=== PATIENT | female | born 1975 | race Caucasian/White ===

== ENCOUNTER → 2016-05-28 | Outpatient (CLI) | payer OTHER ==
[2014-12-27 17:10] VITALS: BP 136/95
--- NOTE | 2016-05-28 17:14 | RAD ---
Pelvic ultrasound, 05/28/2016: History: Pelvic pressure Transabdominal and transvaginal scans were obtained. The uterus measures 11.1 x 5.2 x 8.2 cm. 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 The central uterine echo complex measures approximately 13 mm. This considered to be at the upper limits of normal in the premenopausal state. A small nabothian cyst is present in the cervical region. There is a 1.8 cm slightly hypoechoic myometrial mass in the posterior aspect of the lower uterine segment compatible with a small fibroid. Both ovaries are within normal limits in size. No adnexal mass is seen. No significant free fluid is evident in the pelvis. IMPRESSION: 1. Small uterine fibroid. 2. 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 3. Small nabothian cyst.
== END | disposition home or self-care (01) ==
LOC: US 12:40
PROVIDERS: ATTEND Nurse Practitioner Family
DX: D25.9 Leiomyoma of uterus, unspecified (principal); N88.8 Other specified noninflammatory disorders of cervix uteri
CPT/HCPCS: 76856

== ENCOUNTER → 2016-06-03 | Outpatient (CLI) | payer OTHER ==
[2014-12-27 17:10] VITALS: BP 136/95
--- NOTE | 2016-06-03 12:26 | KCIC ---
PROCEDURE Two views left hip. HISTORY Left hip pain, chronic. Repetitive motion at work. TECHNIQUE Two views of the left hip are submitted for review. COMPARISON None. FINDINGS There is no fracture or dislocation. There is no joint space narrowing. There are calcified phleboliths in the included pelvis. IMPRESSION Normal left hip radiographs. Electronically signed by: Kevan Reid MD (Jun 03, 2016 12:23:48)
--- NOTE | 2016-06-03 12:26 | KCIC ---
PROCEDURE The two views right hip. HISTORY Chronic pain, repetitive bending at work TECHNIQUE Two views of the right hip are submitted for review. COMPARISON None. FINDINGS There is no fracture or dislocation. There is no joint space narrowing. There are calcified phleboliths in the pelvis. There are probably mild degenerative changes at the symphysis pubis. IMPRESSION Normal right hip radiographs. Electronically signed by: Kevan Reid MD (Jun 03, 2016 12:25:06)
--- NOTE | 2016-06-03 12:32 | KCIC ---
PROCEDURE Three-view left knee HISTORY Chronic pain. Repetitive bending and lifting. COMPARISON None FINDINGS No bone lesion. No acute fracture. Joint spaces appear maintained. No significant soft tissue abnormality. IMPRESSION No acute fracture or dislocation. Electronically signed by: Ilia Anderson MD (Jun 03, 2016 12:30:23)
== END | disposition home or self-care (01) ==
LOC: KCIC 11:07
PROVIDERS: ATTEND Family Medicine
DX: M25.532 Pain in left wrist (principal); M25.552 Pain in left hip; M25.551 Pain in right hip; G89.29 Other chronic pain
CPT/HCPCS: 73502; 73562

== ENCOUNTER → 2017-02-18 | Outpatient (CLI) | payer OTHER | END | disposition home or self-care (01) | LOC: KCIC CT 09:29 | DX: N20.0 Calculus of kidney (principal); N29 Other disorders of kidney and ureter in diseases classified elsewhere; R91.8 Other nonspecific abnormal finding of lung field; Z90.49 Acquired absence of other specified parts of digestive tract | CPT/HCPCS: 74176 ==

== ENCOUNTER → 2017-05-31 | Outpatient (CLI) | payer OTHER | END | disposition home or self-care (01) | LOC: RAD 07:43 | DX: K59.00 Constipation, unspecified (principal); Z87.442 Personal history of urinary calculi | CPT/HCPCS: 74018 ==

== ENCOUNTER → 2017-08-04 | Outpatient (CLI) | payer OTHER | END | disposition home or self-care (01) | LOC: KCIC CT 07:59 | DX: R91.8 Other nonspecific abnormal finding of lung field (principal); E83.59 Other disorders of calcium metabolism; N29 Other disorders of kidney and ureter in diseases classified elsewhere | CPT/HCPCS: 71250 ==

== ENCOUNTER → 2017-12-13 | Outpatient (CLI) | payer OTHER ==
[2014-12-27 17:10] VITALS: BP 136/95
--- NOTE | 2017-12-13 16:43 | KCIC ---
Indication:Lateral knee pain couple of weeks. TECHNIQUE: 3 views of the left knee COMPARISON:None FINDINGS/ impression: No acute fracture or dislocation. No arthritis. No suprapatellar effusion. Electronically signed by: Dong Malone DO (12/13/2017 4:40 PM) [facility]
== END | disposition home or self-care (01) ==
LOC: KCIC 11:37
PROVIDERS: ATTEND Family Medicine
DX: M25.562 Pain in left knee (principal)
CPT/HCPCS: 73562

== ENCOUNTER → 2018-09-13 | Outpatient (CLI) | payer OTHER ==
[2014-12-27 17:10] VITALS: BP 136/95
--- NOTE | 2018-09-13 16:12 | KCIC ---
EXAM: Chest CT without intravenous contrast. HISTORY: Pulmonary nodule follow-up. TECHNIQUE: Computed tomographic images of the chest were obtained without contrast. Multiplanar reformatting was performed. *One or more of the following individualized dose reduction techniques were utilized for this examination: 1. Automated exposure control. 2. Adjustment of the mA and/or kV according to patient size. 3. Use of iterative reconstruction technique. COMPARISON: 08/04/2017. FINDINGS: There are several tiny noncalcified pulmonary nodules. The largest of these includes a 4 mm nodule with ill-defined margins within the posterior left lower lobe, 3 mm solid nodule within the lateral left lower lobe and a 3 mm nodule within the posterior lateral right lower lobe. There is no infiltrate, pleural effusion or pneumothorax. The heart is normal in size. There is no lymphadenopathy. The gallbladder is surgically absent. There is an upper normal sized spleen. There is a one of the nonobstructing left renal stone superimposed on suspected bilateral nephrocalcinosis. There are few benign bone islands and osseous hemangiomas. No suspicious osseous lesion is seen. IMPRESSION: 1. Several tiny noncalcified pulmonary nodules, not significant changed compared to the prior study. The largest of these measures 4 mm. Continued follow-up can be performed according to Fleischner Society criteria if clinically indicated. 2. No acute thoracic finding. Fleischner Society recommendations (Radiology 2017): SOLID NODULES Solitary solid nodule <6 mm - low-risk patient: no routine follow-up required - high-risk patient: optional CT at 12 months (particularly with suspicious nodule morphology and/or upper lobe location) Solitary solid nodule 6-8 mm - low-risk patient: CT at 6-12 months, then consider CT at 18-24 months - high risk patient: CT at 6-12 months, then if persistent CT at 18-24 months Solitary solid nodule >8 mm - consider CT at 3 months, PET/CT, or tissue sampling Multiple solid nodules <6 mm - low-risk patient: no routine follow-up required - high-risk patient: optional CT at 12 months Multiple solid nodules >6 mm - low-risk patient: CT at 3-6 months, then consider CT at 18-24 months - high risk patient: CT at 3-6 months, then if persistent CT at 18-24 months SUBSOLID NODULES Solitary ground glass nodule <6 mm - no routine follow-up required Solitary ground glass nodule > or = 6 mm - CT at 6-12 months, then if persistent CT every 2 years until 5 years Solitary part solid nodule > or = 6mm - CT at 3-4 months, the if persistent and solid component remains <6 mm, annual CT until 5 years Multiple subsolid nodules <6 mm - CT at 3-6 months, then if stable consider CT at 2 and 4 years in high risk patients Multiple subsolid nodules > or = 6 mm - CT at 3-6 months, then subsequent management based on the most suspicious nodule(s) Electronically signed by: Holly Whitley MD (09/13/2018 4:09 PM) [facility]
== END | disposition home or self-care (01) ==
LOC: KCIC CT 14:00
PROVIDERS: ATTEND Family Medicine
DX: R91.8 Other nonspecific abnormal finding of lung field (principal)
CPT/HCPCS: 71250

== ENCOUNTER → 2020-04-08 | Outpatient (CLI) | payer OTHER ==
[2014-12-27 17:10] VITALS: BP 136/95
--- NOTE | 2020-04-09 07:44 | KCIC ---
STUDY: Complete renal sonogram INDICATION: Renal stones. COMPARISON: CT abdomen/pelvis 02/18/2017 TECHNIQUE: Real-time grayscale and color Doppler sonographic evaluation of both kidneys. The bladder was also evaluated. FINDINGS: Right kidney: Measures 11.5 cm in length. Within normal limits cortical thickness and echogenicity. M edullary nephrocalcinosis. No hydronephrosis. A right renal stone seen on the [address] is n ot well identified on this exam. Left kidney: Measures 12.7 cm in length. Within normal limits cortical thickness and echogenicity. Me dullary nephrocalcinosis No hydronephrosis. Bladder: Bilateral ureteral jets. Prevoid bladder volume of 50 cc. Miscellaneous: None. IMPRESSION: 1. Medullary calcinosis bilaterally. No discrete stone is identified. No hydronephrosis. 2. Maintained visualization of both ureteral jets. Prevoid bladder volume of 50 cc. Electronically signed by: STEPAN MASON MD (04/09/2020 7:41 AM) [facility]
== END ==
LOC: KCIC US 15:38
PROVIDERS: ATTEND Family Medicine
DX: N20.0 Calculus of kidney (principal)
CPT/HCPCS: 76770